=== PATIENT | male | born 2000 | race Caucasian/White ===

== ENCOUNTER 2023-02-04 01:30 | Emergency (ER) | payer BC, SELFPAY ==
--- NOTE | 2023-02-04 | ECG_ITS ---
Test Reason : CHEST PAIN Blood Pressure : / mmHG Vent. Rate : 068 BPM Atrial Rate : 068 BPM P-R Int : 138 ms QRS Dur : 076 ms QT Int : 352 ms P-R-T Axes : 065 072 053 degrees QTc Int : 374 ms Normal sinus rhythm Normal ECG No previous ECGs available Referred By: Generic ED Physician Electronically Signed By:VERONIKA TORREZ MD
[2023-02-04 01:43] VITALS: BP 125/82; PULSE 63; RESP 18; TEMP 36.3; O2SAT 100; BMI 25.0
[2023-02-04 02:10] LABS: Hematocrit 45.7 % (42.0-52.0); Hemoglobin 15.1 g/dl (14.0-18.0); Mean Corpuscular Hemoglobin 27.3 pg (27.0-33.0); Mean Corpuscular Volume 82.5 fL (80.0-98.0); Mean Platelet Volume 8.9 fL (9.4-12.4); Platelet Count 325 X10*3/uL (160-400); Red Blood Count 5.54 X10*6/uL (4.60-5.80); Red Cell Distribution Width 12.8 % (11.0-16.0); White Blood Count 10.5 X10*3/uL (4.8-10.8)
[2023-02-04 02:33] LABS: Alanine Aminotransferase 22 U/L (0-40); Albumin Level 4.7 g/dL (3.5-5.0); Alkaline Phosphatase 73 U/L (39-117); Anion Gap 12 (12-20); Aspartate Amino Transferase 17 U/L (5-37); Bilirubin Total 0.4 mg/dL (0.0-1.0); Blood Urea Nitrogen 21 mg/dL (9-16); Carbon Dioxide 27 mmol/L (22-29); Chloride 103 mmol/L (96-108); Creatinine Clr Calc Pharmacy 117.1; Estimated Glomerular Filt Rate > 60; Glucose Random 100 mg/dL (60-115); Potassium 3.9 mmol/L (3.3-5.1); Sodium 138 mmol/L (135-145); Total Protein 7.6 g/dL (6.5-8.0)
--- NOTE | 2023-02-04 02:40 | ED.CHESTPAIN ---
HPI - Chest Pain General Chief Complaint: Chest Pain Stated Complaint: chest pain Time Seen by Provider: 02/04/23 02:20 Source: patient Mode of arrival: ambulatory Limitations: no limitations History of Present Illness HPI narrative: Patient with significant past medical history notice pain with left side of the chest sharp increases on palpation and movements no shortness of breath no murmur or palpitation no pain level no history of sudden cardiac the family Review of Systems Review of Systems: Yes all other systems are reviewed and are negative [facility] Social History Social History Advance Directives: No Advance Directives Information Provided: No Physical Exam Vital Signs: Vital Signs: Last Vital Signs Temp 98.1 F 02/04/23 02:53 Pulse 70 02/04/23 02:53 Resp 17 02/04/23 02:53 BP 116/66 02/04/23 02:53 Pulse Ox 98 02/04/23 02:53 O2 Del Method Room Air 02/04/23 02:53 BMI result Body Mass Index 25.0 Appearance: Alert. Oriented X3. No acute distress. ENT: Pharynx normal. Oral Mucosa moist Neck: Normal inspection. Neck supple. CVS: Normal heart rate and rhythm. Pulses normal. Left chest wall tenderness+ Respiratory: No respiratory distress. Equal air entry bilateral, no wheezing/rales/rhonchi Abdomen: Soft and nontender. Bowel sounds are present, no mass palpable, no CVA tenderness Skin: Skin warm and dry. Normal skin color. Normal skin turgor. Extremities: No lower extremity edema. No calf tenderness Neuro: Oriented X 3. No motor deficit. Medical Decision Making Medical Decision Making MDM Narrative: Patient atypical chest pain workup negative heart score of 0 discharge patient home no chest pain at this Differential Diagnosis Costochondritis/ACS Lab Data [facility] Lab Attestation statement: I reviewed the patient's lab results. 02/04/23 02:03 02/04/23 02:03 Labs: Lab Results 02/04/23 02/04/23 02/04/23 Range/Units 02:03 02:03 02:03 WBC 10.5 (4.8-10.8) X10*3/uL RBC 5.54 (4.60-5.80) X10*6/uL Hgb 15.1 (14.0-18.0) g/dl Hct 45.7 (42.0-52.0) % MCV 82.5 (80.0-98.0) fL MCH 27.3 (27.0-33.0) pg MCHC 33.0 (31.0-36.0) g/dl RDW 12.8 (11.0-16.0) % Plt Count 325 (160-400) X10*3/uL MPV 8.9 L (9.4-12.4) fL Absolute Nucleated RBC 0.000 (0.0-0.012) X10*3/uL Nucleated RBC % (auto) 0.0 (0.0-0.2) /100WBC Sodium 138 (135-145) mmol/L Potassium 3.9 (3.3-5.1) mmol/L Chloride 103 (96-108) mmol/L Carbon Dioxide 27 (22-29) mmol/L Anion Gap 12 (12-20) BUN 21 H (9-16) mg/dL Creatinine 0.94 (0.5-1.4) mg/dL Estim Creat Clear Calc 117.1 Estimated GFR > 60 Random Glucose 100 (60-115) mg/dL Calcium 10.0 (8.4-10.2) mg/dL Total Bilirubin 0.4 (0.0-1.0) mg/dL AST 17 (5-37) U/L ALT 22 (0-40) U/L Alkaline Phosphatase 73 (39-117) U/L Troponin I High Sens < 2.7 (<3.5-35.0) ng/L Total Protein 7.6 (6.5-8.0) g/dL Albumin 4.7 (3.5-5.0) g/dL Independent Interpretation I performed an independent interpretation of an: EKG Interpretation: Normal sinus rhythm heart rate 68 beats per minute normal interval normal axis no acute ST changes no acute ischemia Discharge Plan Discharge Clinical Impression: Atypical chest pain Patient Disposition: Home, Self-Care Instructions: Chest Wall Pain (ED) Additional Instructions: Your chest pain is musculoskeletal Take Tylenol/Motrin for pain as needed
[2023-02-04 02:43] LABS: Troponin-I High Sensitivity < 2.7 ng/L (<3.5-35.0)
[2023-02-04 02:53] VITALS: BP 116/66; PULSE 70; RESP 17; TEMP 36.7; O2SAT 98
== END 2023-02-04 03:12 | disposition home or self-care (01) ==
PROVIDERS: Emergency Provider Internal Medicine
DX: R07.89 Other chest pain (principal)
CPT/HCPCS: 36415; 80053; 84484; 85027; 93005; 99283; 99285

== ENCOUNTER → 2023-02-04 01:45 | Outpatient (BNV) | payer BC, SELFPAY | PROVIDERS: Emergency Provider Internal Medicine; Visit Provider Internal Medicine Cardiovascular Disease | DX: R07.9 Chest pain, unspecified (principal) | CPT/HCPCS: 93010 ==